=== PATIENT | female | born 2000 | race Caucasian/White ===

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

== ENCOUNTER 2019-05-30 20:49 | Emergency (ER) | payer OTHER ==
[2019-05-30 21:08] VITALS: BP 123/77
--- NOTE | 2019-05-30 21:20 | UC ---
Complaint Female HPI - HPI Summary HPI Summary: patient has had uti sx for 10 days (that was not treated)---last night she had developed a fever and today she is vomiting-- - History Of Current Complaint Chief Complaint: UCGU Stated Complaint: URINARY PROBLEM Time Seen by Provider: 05/30/19 21:04 Hx Obtained From: Patient Hx Last Menstrual Period: 05/20/19 ?: No Onset/Duration: Sudden Onset, Lasting Days - 10, Still Present Timing: Constant Severity Initially: Mild Severity Currently: Moderate Pain Intensity: 6 Pain Scale Used: 0-10 Numeric Character: Cramping Aggravating Factor(s): Urination Alleviating Factor(s): Other - tylenol Associated Signs And Symptoms: Positive: Fever, Nausea, Vomiting(# Of Episodes = ) - Allergies/Home Medications Allergies/Adverse Reactions: Allergies Allergy/AdvReac Type Severity Reaction Status Date / Time No Known Allergies Allergy Verified 05/30/19 21:08 Home Medications: Home Medications Fluoxetine (Nf) Cap [Fluoxetine HCl] 40 mg PO DAILY 05/30/19 [History Confirmed 05/30/19] PMH/Surg Hx/FS Hx/Imm Hx Previously Healthy: No Psychological History: Anxiety - Surgical History Surgical History: None - Family History Known Family History: Positive: None - Social History Occupation: Student Lives: Dormitory/Roommates Alcohol Use: None Substance Use Type: None Smoking Status (MU): Never Smoked Tobacco Review of Systems All Other Systems Reviewed And Are Negative: Yes Constitutional: Positive: Fever, Chills, Fatigue Skin: Positive: Rash - hives--- Eyes: Positive: Negative ENT: Positive: Negative Respiratory: Positive: Negative Cardiovascular: Positive: Negative Gastrointestinal: Positive: Abdominal Pain, Vomiting, Nausea Genitourinary: Positive: Dysuria, Frequency, Urgency Motor: Positive: Negative Neurovascular: Positive: Negative Musculoskeletal: Positive: Negative Neurological: Positive: Negative Psychological: Positive: Negative Is Patient Immunocompromised?: No Physical Exam Triage Information Reviewed: Yes Appearance: Ill-Appearing, Pain Distress Vital Signs: Initial Vital Signs Temp 102.1 F 05/30/19 21:02 Pulse 130 05/30/19 21:02 Resp 20 05/30/19 21:02 BP 123/77 05/30/19 21:02 Pulse Ox 97 05/30/19 21:02 Vital Signs Reviewed: Yes Eye Exam: Normal Eyes: Positive: Conjunctiva Clear ENT Exam: Normal ENT: Positive: Normal ENT inspection, Hearing grossly normal. Negative: Trismus , Muffled voice, Hoarse voice Dental Exam: Normal Neck exam: Normal Neck: Positive: Supple, Nontender Respiratory Exam: Normal Respiratory: Positive: Chest non-tender, Lungs clear, Normal breath sounds, No respiratory distress, No accessory muscle use Cardiovascular Exam: Normal Cardiovascular: Positive: RRR, Pulses Normal, Brisk Capillary Refill, Tachycardia Abdominal Exam: Other Abdomen Description: Positive: No Organomegaly, Soft, Other: - llq pain. Negative: Nontender, Hepatomegaly, McBurney's Point Tenderness Bowel Sounds: Positive: Present Musculoskeletal Exam: Normal Musculoskeletal: Positive: Strength Intact, ROM Intact, No Edema Neurological Exam: Normal Neurological: Positive: Alert, Muscle Tone Normal Psychological Exam: Other - fearful teary Skin Exam: Normal Complaint Female Dx - Course Course Of Treatment: npo to hospital for further care and assessment---- - Differential Dx/Diagnosis Provider Diagnosis: Fever complicating acute cystitis Discharge ED - Sign-Out/Discharge Documenting (check all that apply): Patient Departure All imaging exams completed and their final reports reviewed: No Studies - Discharge Plan Condition: Stable Disposition: HOME-RECOMMEND TO ED Patient Education Materials: Fever in Adults (ED) Referrals: [facility] [Outside] - If Needed - Billing Disposition and Condition Condition: STABLE Disposition: Home-Recommend to ED
[2019-05-30] MEDS ORDERED: Acetaminophen TAB* 325 MG PO ONE (21:36)
== END 2019-05-30 21:51 | disposition home health service (06) ==
LOC: UCEAST 20:49
DX: N39.0 Urinary tract infection, site not specified (principal); R51 Headache; R11.2 Nausea with vomiting, unspecified; R78.81 Bacteremia
CPT/HCPCS: 81003; 84702; 87077; 87086; 87186; 99212; A9270-GY; G0463

== ENCOUNTER 2019-05-30 22:06 | Emergency (ER) | payer OTHER ==
[2019-05-30] MEDS ORDERED: NS 0.9% 1000 ML** 1,000 ML IV ONE ×2 (22:14→22:45)
--- NOTE | 2019-05-30 22:17 | ED ---
GI/ HPI - HPI Summary HPI Summary: Patient sent from urgent care to ED to eval possible kidney infection. Patient has history of burning with urination 10 days, with new onset headache, fever, chills, left lower quadrant pain, nausea, vomiting starting yesterday. No active abdominal pain at this time. Also new onset rash today. Patient doubled her dose of fluoxetine 1 week ago. Denies new lotions, soaps, detergents, foods, beverages. Denies history of urticaria. Denies cough, sore throat, CP, change in BM, vaginal symptoms. Medical history is anxiety. Abdominal surgical history is none. Denies smoking, EtOH, recreational drug use. LMP second week of May. - History of Current Complaint Chief Complaint: EDUrogenitalProblems Time Seen by Provider: 05/30/19 22:12 Stated Complaint: CHECK WBC/POS KIDNEY INFECTION SENT FROM CC PER PT Hx Obtained From: Patient Hx Last Menstrual Period: 05/20/19 Onset/Duration: Started Days Ago Timing: Intermittent Current Severity: None Pain Intensity: 0 Location of Pain: LUQ, LLQ Pain Characteristics: Dull, Cramping Associated Signs and Symptoms: Positive: Nausea, Vomiting, Fever, Dysuria, Abdominal Pain, UTI Symptoms - Allergy/Home Medications Allergies/Adverse Reactions: Allergies Allergy/AdvReac Type Severity Reaction Status Date / Time No Known Allergies Allergy Verified 05/30/19 22:09 Home Medications: Home Medications Acetaminophen [Tylenol] 650 mg PO ONCE PRN 05/30/19 [History Confirmed 05/30/19] PMH/Surg Hx/FS Hx/Imm Hx Endocrine/Hematology History: Denies: Hx Anticoagulant Therapy Cardiovascular History: Denies: Hx Pacemaker/ICD History: Denies: Hx Dialysis Sensory History: Denies: Hx Eye Prosthesis Opthamlomology History: Denies: Hx Legally Blind EENT History: Denies: Hx Deafness Neurological History: Denies: Hx Dementia Infectious Disease History: No Infectious Disease History: Denies: Traveled Outside the [place] in Last 30 Days - Family History Known Family History: Positive: None - Social History Alcohol Use: None Substance Use Type: Reports: None Smoking Status (MU): Never Smoked Tobacco Review of Systems Positive: Fever, Chills Eyes: Negative ENT: Negative Cardiovascular: Negative Positive: Shortness Of Breath Positive: Abdominal Pain, Vomiting, Nausea Positive: burning Musculoskeletal: Negative Positive: Rash Positive: Headache Psychological: Normal All Other Systems Reviewed And Are Negative: Yes Physical Exam - Summary Physical Exam Summary: Tenderness left upper quadrant and left lower quadrant. Abdominal exam otherwise unremarkable. Triage Information Reviewed: Yes Vital Signs On Initial Exam: Initial Vitals Temp Pulse Resp BP Pulse Ox 103 F 130 16 119/77 97 05/30/19 22:07 05/30/19 22:07 05/30/19 22:07 05/30/19 22:07 05/30/19 22:07 Vital Signs Reviewed: Yes Appearance: Positive: Well-Appearing Skin: Positive: Warm Head/Face: Positive: Normal Head/Face Inspection Eyes: Positive: Normal Neck: Positive: Supple Respiratory/Lung Sounds: Positive: Clear to Auscultation Cardiovascular: Positive: Normal Abdomen Description: Positive: CVA Tenderness (L), Other:. Negative: CVA Tenderness (R) Musculoskeletal: Positive: Normal Neurological: Positive: Normal Psychiatric: Positive: Normal AVPU Assessment: Alert - [place] Coma Scale Best Eye Response: 4 - Spontaneous Best Motor Response: 6 - Obeys Commands Best Verbal Response: 5 - Oriented Coma Scale Total: 15 Procedures - Sedation Patient Received Moderate/Deep Sedation with Procedure: No Diagnostics - Vital Signs Vital Signs Temp Pulse Resp BP Pulse Ox 05/30/19 22:07 103 F 130 16 119/77 97 - Laboratory Result Diagrams: 05/30/19 22:26 05/30/19 22:26 Lab Statement: Any lab studies that have been ordered have been reviewed, and results considered in the medical decision making process. GIGU Course/Dx - Course Course Of Treatment: Patient sent from urgent care to ED to eval possible kidney infection. Patient has history of burning with urination 10 days, with new onset headache, fever, chills, left lower quadrant pain, nausea, vomiting starting yesterday. No active abdominal pain at this time. Also new onset rash today. Patient doubled her dose of fluoxetine 1 week ago. Denies new lotions, soaps, detergents, foods, beverages. Denies history of urticaria. Denies cough, sore throat, CP, change in BM, vaginal symptoms. Medical history is anxiety. Abdominal surgical history is none. Denies smoking, EtOH, recreational drug use. LMP second week of May. Temperature 103. Heart rate 130. Vital signs otherwise within normal limits. WBC 21. CRP 257. Lactic 0.6. Labs otherwise unremarkable. Fever and tachycardia controlled with antipyretics. Rocephin 2g administered IV here in the ED. Rx for Bactrim by mouth. 2 L normal saline here in ED. Discussed patient with attending Dr. Orosco who agreed patient could be discharged if sirs criteria controlled. Rash resolved with the Benadryl or the fever control. - Diagnoses Provider Diagnoses: Polyneuritis, Rash Discharge ED - Sign-Out/Discharge Documenting (check all that apply): Patient Departure - Discharge Plan Condition: Stable Disposition: HOME Prescriptions: Sulfamethox/Trimethoprim DS* [Bactrim DS 800/160 TAB*] 1 tab PO BID 14 Days #28 tab Patient Education Materials: Kidney Infection (ED) Referrals: Valorie Quintanilla NP [Primary Care Provider] - Additional Instructions: Drink plenty of fluids to maintain hydration. Alternate ibuprofen 600 mg with Tylenol 650 mg every 3 hours for fever as needed. Take antibiotics as directed twice a day for 14 days. Follow-up with primary care. Return to the ED for any new or worsening symptoms. - Billing Disposition and Condition Condition: STABLE Disposition: Home
[2019-05-30] MEDS ORDERED: Ondansetron INJ* 2 MG/ML VIAL IV ONE (22:24)
[2019-05-30 22:37] LABS: Hematocrit 36 % (35-47); Mean Corpuscular HGB Conc 34 g/dL (31-36); Mean Corpuscular Hemoglobin 29 pg (27-31); Mean Corpuscular Volume 86 fL (80-97); Mean Platelet Volume 8.2 fL (7.4-10.4); Platelet Count 239 10^3/uL (150-450); Red Blood Count 4.18 10^6 /uL (3.70-4.87); Red Cell Distribution Width 14 % (10-15); White Blood Count 21.2 10^3/uL (3.5-10.8)
[2019-05-30] MEDS ORDERED: cefTRIAXone(*) 2 GM in NS 0.9% 100 ML* 100 ML IVPB ONE (22:44)
[2019-05-30] MEDS ORDERED: Ibuprofen TAB* 600 MG PO ONE (22:45)
[2019-05-30 22:52] LABS: ALT 16 U/L (7-52); AST 16 U/L (13-39); Albumin 4.1 g/dL (3.2-5.2); Albumin/Globulin Ratio 1.3 (1-3); Alkaline Phosphatase 93 U/L (34-104); Anion Gap 10 mmol/L (2-11); Blood Urea Nitrogen 13 mg/dL (6-24); C Reactive Protein 257.02 mg/L (<8.01); CO2 Carbon Dioxide 21 mmol/L (22-32); Chloride 101 mmol/L (101-111); EGFR African American 110.2 (>60); EGFR Non-African American 91.1 (>60); Globulin 3.1 g/dL (2-4); Glucose 121 mg/dL (70-100); Potassium 3.5 mmol/L (3.5-5.0); Sodium 132 mmol/L (135-145); Total Protein 7.2 g/dL (6.4-8.9)
[2019-05-30] MEDS ORDERED: diPHENhydraMINE IV* 50 MG/ML 1 ml VIAL (BENADRYL) IV ONE (22:53)
[2019-05-30 22:54] LABS: ABS Lymphocytes 0.7 10^3/ul (1.0-4.8); ABS Monocytes 1.9 10^3/ul (0-0.8); ABS Neutrophils 18.6 10^3/ul (1.5-7.7); Eosinophil % 0.1 %; Lymphocyte % 3.1 %
[2019-05-30 22:59] LABS: HCG Pregnancy < 0.60 mIU/mL
[2019-05-30 23:10] LABS: Influenza A Molecular NEGATIVE (Negative); Influenza B Molecular NEGATIVE (Negative)
[2019-05-31 00:19] VITALS: BP 116/65
== END 2019-05-31 00:09 | disposition home or self-care (01) ==
LOC: ED 22:06
DX: G62.9 Polyneuropathy, unspecified (principal); R21 Rash and other nonspecific skin eruption; R30.0 Dysuria; R51 Headache; R50.9 Fever, unspecified; R10.32 Left lower quadrant pain; R11.2 Nausea with vomiting, unspecified
CPT/HCPCS: 36415; 80053; 83605; 83690; 84702; 85025; 86140; 87040; 87077; 87186; 87205; 96361; 96365; 96375; 99283; A9270-GY; J0696; J1200; J2405

== ENCOUNTER 2019-05-31 12:43 | Observation (INO) | payer OTHER ==
--- NOTE | 2019-05-31 13:10 | ED ---
Complex/Multi-Sys Presentation - HPI Summary HPI Summary: Patient is a 18 y/o F presenting to the ED for a chief complaint of a bacterial infection in the blood. Patient states that she received a call about having bacteria in her blood after being seen at [facility] on 05/30/19 for a possible kidney infection. She notes having a UTI 1 weeks ago that worsened from initial onset. Patient went to urgent care and was sent to [facility] where she was given antibiotics. She feels improved since her visit to [facility]. Patient reports LLQ abdominal pain, lightheadedness, dizziness, cough, and headache. Patient notes nausea 2 days ago and an episode of vomiting on 05/30/19. Patient denies vaginal bleeding, vaginal discharge, or rhinorrhea. Any significant PMHx, including previous kidney infections, is denied. Patient denies tobacco use. LNMP was on 05/07/19. - History Of Current Complaint Chief Complaint: EDGeneral Time Seen by Provider: 05/31/19 12:56 Hx Obtained From: Patient Onset/Duration: Sudden Onset, Still Present Timing: Constant Severity Currently: Moderate Severity Initially: Moderate Associated Signs And Symptoms: Positive: Headache, Nausea, Vomiting, Abdominal Pain - LLQ, Fever - In vitals, 99.8 F - Allergies/Home Medications Allergies/Adverse Reactions: Allergies Allergy/AdvReac Type Severity Reaction Status Date / Time No Known Allergies Allergy Verified 05/30/19 22:09 PMH/Surg Hx/FS Hx/Imm Hx Previously Healthy: Yes Endocrine/Hematology History: Denies: Hx Anticoagulant Therapy, Hx Diabetes Cardiovascular History: Denies: Hx Pacemaker/ICD History: Denies: Hx Dialysis Sensory History: Denies: Hx Eye Prosthesis, Hx Legally Blind, Hx Deafness Opthamlomology History: Denies: Hx Eye Prosthesis, Hx Legally Blind Neurological History: Denies: Hx Dementia - Surgical History Surgical History: None Surgery Procedure, Year, and Place: None Infectious Disease History: No Infectious Disease History: Denies: Traveled Outside the [place] in Last 30 Days - Family History Known Family History: Negative: Cardiac Disease, Hypertension, Diabetes - Social History Occupation: Student Lives: Alone Alcohol Use: None Hx Substance Use: No Substance Use Type: Reports: None Hx Tobacco Use: No Smoking Status (MU): Never Smoked Tobacco Review of Systems Positive: Fever - In vitals, 99.8 F Negative: Nasal Discharge Positive: Cough Positive: Abdominal Pain - LLQ, Vomiting, Nausea Positive: dysuria. Negative: discharge - Vaginal, other - Negative vaginal bleeding Neurological: Other - Positive lightheadedness and dizziness Positive: Headache All Other Systems Reviewed And Are Negative: Yes Physical Exam - Summary Physical Exam Summary: Constitutional: Well-developed, Well-nourished, Alert. (-) Distressed Skin: Warm, Dry HENT: Normocephalic; Atraumatic Eyes: Conjunctiva normal Neck: Musculoskeletal ROM normal neck. (-) JVD, (-) Stridor, (-) Tracheal deviation Cardio: Rhythm regular, rate normal, Heart sounds normal; Intact distal pulses; The pedal pulses are 2+ and symmetric. Radial pulses are 2+ and symmetric. (-) Murmur Pulmonary/Chest wall: Effort normal. (-) Respiratory distress, (-) Wheezes, (-) Rales Abd: Soft, (-) Distension, (-) Guarding, (-) Rebound. Mild suprapubic tenderness. Musculoskeletal: (-) Edema Lymph: (-) Cervical adenopathy Neuro: Alert, Oriented x3 Psych: Mood and affect Normal Triage Information Reviewed: Yes Vital Signs On Initial Exam: Initial Vitals Temp Pulse Resp BP Pulse Ox 99.8 F 105 19 133/81 98 05/31/19 12:44 05/31/19 12:44 05/31/19 12:44 05/31/19 12:44 05/31/19 12:44 Vital Signs Reviewed: Yes Procedures - Sedation Patient Received Moderate/Deep Sedation with Procedure: No Diagnostics - Vital Signs Vital Signs Temp Pulse Resp BP Pulse Ox 05/31/19 12:44 99.8 F 105 19 133/81 98 - Laboratory Result Diagrams: 05/31/19 13:19 05/31/19 13:19 Lab Statement: Any lab studies that have been ordered have been reviewed, and results considered in the medical decision making process. - Ultrasound Renal US Ultrasound Interpretation Completed By: Radiologist Summary of Ultrasound Findings: Renal US IMPRESSION: NO HYDRONEPHROSIS OR NEPHROLITHIASIS. Reviewed by Dr. Davison. Complex Multi-Symp Course/Dx Course Of Treatment: Patient is a 18 y/o F presenting to the ED for a chief complaint of a bacterial infection in the blood. Patient states that she received a call about having bacteria in her blood after being seen at [facility] on 05/30/19 for a possible kidney infection. She notes having a UTI 1 weeks ago that worsened from initial onset. Patient went to urgent care and was sent to [facility] where she was given antibiotics. She feels improved since her visit to [facility]. Patient reports LLQ abdominal pain, lightheadedness, dizziness, cough, and headache. Patient notes nausea 2 days ago and an episode of vomiting on . Patient denies vaginal bleeding, vaginal discharge, or rhinorrhea. Any significant PMHx, including previous kidney infections, is denied. Patient denies tobacco use. LNMP was on 05/07/19. On exam, soft, non-distended abdomen , mild suprapubic tenderness. In the ED course, patient was given ceftriaxone 1 gm IVPB and IV fluids. Laboratory abnormal findings: WBC 13.9, Hgb 11.2, Hct 33, absolute neuts 12.1, absolute monos 0.9, glucose 137, calcium 8.4, CRP 288.66, urine ketones trace, urine blood 1+, urine leukocyte esterase 3+, urine WBC 3+, urine RBC 2+, urine squamous epith cells present, urine bacteria 1+. Renal US IMPRESSION: NO HYDRONEPHROSIS OR NEPHROLITHIASIS. At 16:12, Dr. Negrita Lee reviewed the patients case and agrees to admit the patient to [facility] with a diagnosis of UTI and bacteremia. Patient will be admitted to [facility] with a diagnosis of UTI and bacteremia. - Diagnoses Provider Diagnoses: UTI (urinary tract infection), Bacteremia - Physician Notifications Discussed Care Of Patient With: Negrita Lee - At 16:12, Dr. Negrita Lee reviewed the patients case and agrees to admit the patient to [facility] with a diagnosis of UTI and bacteremia. Time Discussed With Above Provider: 16:12 Instructed by Provider To: Admit As Inpatient Discharge ED - Sign-Out/Discharge Documenting (check all that apply): Patient Departure - Admit - Discharge Plan Condition: Stable Disposition: ADMITTED TO [facility] - Billing Disposition and Condition Condition: STABLE Disposition: Admitted to [facility] - Attestation Statements Document Initiated by Scribe: Yes Documenting Scribe: Sridevi Wolfe Provider For Whom Scribe is Documenting (Include Credential): Vasile Davison, DO Scribe Attestation: I, Sridevi Wolfe, scribed for Vasile Davison DO on 05/31/19 at 2033. Scribe Documentation Reviewed: Yes Provider Attestation: The documentation as recorded by the scribe, Sridevi Wolfe accurately reflects the service I personally performed and the decisions made by , Vasile Davison DO Status of Scribe Document: Viewed
[2019-05-31] MEDS ORDERED: NS 0.9% 1000 ML** 1,000 ML IV ONE ×2 (13:13→14:39)
[2019-05-31] MEDS ORDERED: cefTRIAXone(*) 1 GM in NS 0.9% 50 ML* 50 ML IVPB ONE (13:18)
[2019-05-31 13:28] LABS: ABS Monocytes 0.9 10^3/ul (0-0.8); ABS Neutrophils 12.1 10^3/ul (1.5-7.7); Eosinophil % 0.1 %; Hematocrit 33 % (35-47); Hemoglobin 11.2 g/dL (12.0-16.0); Lymphocyte % 6.9 %; Mean Corpuscular HGB Conc 34 g/dL (31-36); Mean Corpuscular Hemoglobin 29 pg (27-31); Mean Corpuscular Volume 86 fL (80-97); Mean Platelet Volume 7.9 fL (7.4-10.4); Platelet Count 211 10^3/uL (150-450); Red Blood Count 3.85 10^6 /uL (3.70-4.87); Red Cell Distribution Width 14 % (10-15); White Blood Count 13.9 10^3/uL (3.5-10.8)
[2019-05-31 13:44] LABS: BUN/Creatinine Ratio 11.8 (8-20); C Reactive Protein 288.66 mg/L (<8.01); Calcium 8.4 mg/dL (8.6-10.3); EGFR African American 134.9 (>60); EGFR Non-African American 111.5 (>60); Potassium 3.6 mmol/L (3.5-5.0)
--- NOTE | 2019-05-31 14:49 | ED ---
Imaging and Labs Follow Up Follow Up Type: Labs/Cultures, Other Labs/Culture Result: pt called to return to the ED following + gram negative bacilli cultures Patient Communication/Plan: pt agrees to return Patient Communication/Plan: returned to the ED Other Patient Communication/Plan: ...
[2019-05-31 15:57] LABS: Urine Appearance Cloudy; Urine Bilirubin Negative (Negative); Urine Blood 1+ (Negative); Urine Color Yellow; Urine Glucose Negative (Negative); Urine Ketones Trace (Negative); Urine Nitrite Negative (Negative); Urine Protein Negative (Negative); Urine Urobilinogen Negative (Negative)
[2019-05-31 16:09] LABS: Urine Bacteria 1+ (Absent); Urine Red Blood Cell 2+(6-10/hpf) (Absent); Urine Squamous Epithelial Cell Present (Absent); Urine White Blood Cell 3+(>20/hpf) (Absent)
[2019-05-31] MEDS: Acetaminophen TAB* 325 MG PO PRN ×2 (17:16→23:30)
--- NOTE | 2019-05-31 19:35 | HP ---
CC: [facility] * HISTORY AND PHYSICAL: DATE OF ADMISSION: 05/31/19 PRIMARY CARE PROVIDER: [facility] CHIEF COMPLAINT: Directed by the ED due to positive blood cultures yesterday. 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 The patient also at that point was having fevers. She was evaluated by the ED provider, given a dose of ceftriaxone and prescribed Bactrim to go home with. The patient's temperature yesterday was 103 degrees and her leukocyte count was 21,000. After she went home from the ED yesterday, she felt better and she had been afebrile until the ED provider called her today that her blood cultures were positive for gram- negative bacilli. At that point, her urinary symptoms were resolving. She came into the ED for evaluation. Her WBCs at this point are 13,000. She is afebrile. She is still mildly tachycardiac. She is going to be placed on overnight observation as requested by the ED provider for UTI and sepsis. PAST MEDICAL HISTORY: None. PAST SURGICAL HISTORY: None. MEDICATIONS: At admission included: 1. Bactrim 1 tablet b.i.d. started yesterday. 2. Fluoxetine 40 mg daily. 3. Acetaminophen on p.r.n. basis. FAMILY HISTORY: Both the patient's parents have diabetes and father with history of dyslipidemia. SOCIAL HISTORY: The patient denies any tobacco, alcohol or drug use. She is a [employer] student. Her surrogate is her father Khris Monroy with a phone number of [phone]. REVIEW OF SYSTEMS: Please see history of present illness. All the remaining 12 systems reviewed with the patient and were otherwise negative. PHYSICAL EXAMINATION GENERAL: The patient is a very pleasant 18-year-old female who is in no acute distress. The patient alert and oriented x3. VITAL SIGNS: Blood pressure of 104/88, heart rate of 92 and regular, respiratory rate 19, oxygen saturation 97% on room air, temperature 99.8. HEENT: Head: Atraumatic, normocephalic. Eyes: Pupils are equal, reactive to light and accommodation. Oropharynx clear. Mucosa moist. NECK: Supple. No JVD. No bruits bilaterally. RESPIRATORY: Clear to auscultation bilaterally. CARDIOVASCULAR: Regular rate and rhythm. No murmur. ABDOMEN: Soft, nontender. Bowel sounds present in all 4 quadrants. BACK: On evaluation of the back, no CVA tenderness bilaterally noted. EXTREMITIES: There is no edema. Pulses are +2 bilaterally. There is no clubbing, no cyanosis. NEUROLOGIC: Speech clear. Cranial nerves II through XII grossly intact. Motor strength is 5/5 bilaterally. DIAGNOSTIC STUDIES/LABORATORY DATA: White blood cell count 13.9, hemoglobin 11.2, hematocrit 33, platelets 211. C-reactive protein was 2.88. Sodium 135, potassium 3.6, chloride 105, carbon dioxide 24, BUN 8, creatinine 0.6. Urinalysis positive for yellow and cloudy urine with trace blood, +3 esterase, + 3 wbc's, +2 rbc's. Renal ultrasound obtained today showed no hydronephrosis or nephrolithiasis and normal size of kidneys. Portable chest x-ray reviewed by myself. The official radiologist report shows mild vascular congestion. ASSESSMENT AND PLAN: 1. Sepsis with gram-negative bacteremia likely due to urinary tract infection. Unfortunately, it appears that the patient did not have cultures obtained from the urinalysis obtained yesterday. Those are going to be obtained today. The patient is going to be continued on ceftriaxone that was started yesterday. At this point, the lactic acid is still pending at the time of dictation, but she had been afebrile and she feels much better with decreased leukocytosis. She is going to be placed on overnight observation. Of note, she received a total of 4 L of intravenous fluid within the past 24 hours. She has mild vascular congestion on the chest x-ray and no further fluids are going to be administered. 2. For DVT prophylaxis, the patient is ambulatory and low risk. 3. The patient's code status is full. Her surrogate is her father. TIME SPENT: Approximately 65 minutes was spent on admission of this patient, more than half of that time was spent [id number] with the patient during the interview and physical exam. [id number] #: [id number] MTDD
[2019-06-01 08:15] LABS: ABS Lymphocytes 2.2 10^3/ul (1.0-4.8); ABS Monocytes 1.4 10^3/ul (0-0.8); ABS Neutrophils 11.7 10^3/ul (1.5-7.7); Eosinophil % 0.3 %; Hematocrit 33 % (35-47); Hemoglobin 11.3 g/dL (12.0-16.0); Lymphocyte % 14.4 %; Mean Corpuscular HGB Conc 35 g/dL (31-36); Mean Corpuscular Hemoglobin 30 pg (27-31); Mean Corpuscular Volume 85 fL (80-97); Mean Platelet Volume 8.4 fL (7.4-10.4); Platelet Count 234 10^3/uL (150-450); Red Blood Count 3.82 10^6 /uL (3.70-4.87); Red Cell Distribution Width 15 % (10-15); White Blood Count 15.3 10^3/uL (3.5-10.8)
[2019-06-01] MEDS ORDERED: FLUoxetine CAP* 20 MG PO SCH (09:00)
[2019-06-01] MEDS ORDERED: Azithromycin 500 mg/250 ml NS 500 MG/250 ML BAG IVPB SCH (10:00)
[2019-06-01] MEDS ORDERED: guaiFENesin ER TAB 600 MG PO SCH (10:00)
[2019-06-01] MEDS ORDERED: Ondansetron INJ* 2 MG/ML VIAL IV ONE (12:08)
[2019-06-01] MEDS ORDERED: cefTRIAXone(*) 1 GM in NS 0.9% 50 ML* 50 ML IVPB SCH (13:00)
[2019-06-01 13:14] VITALS: BP 101/54
--- NOTE | 2019-06-01 18:34 | DS ---
CC: Primary Care Provider; [facility] * DISCHARGE SUMMARY: DATE OF ADMISSION: 05/31/19 DATE OF DISCHARGE: 06/01/19 PRIMARY CARE PROVIDER: Provider from [facility]. DISPOSITION AT DISCHARGE: Home. CONDITION AT DISCHARGE: Stable. DISCHARGE DIAGNOSES: 1. Sepsis due to urinary tract infection with Escherichia coli bacteremia. 2. Possible right-sided pneumonia. MEDICATIONS AT DISCHARGE: Include: 1. Cefdinir 300 mg p.o. b.i.d. for a total of 10 days. 2. Azithromycin 250 mg p.o. daily for a total of 4 days. 3. Fluoxetine as previously taken at 40 mg daily. LABORATORY DATA AND STUDIES PERFORMED DURING THE HOSPITAL STAY: Included on , white blood cell count of 15.3, hemoglobin of 11.3, hematocrit of 33, and platelets of 234. Microbiology studies with blood cultures obtained on 05/30/19, one of 3 bottles was reported positive for E. coli. The culture sensitivities are still pending at the time of dictation and as per my discussion with microbiology lab, will be reported on 06/02/19. HOSPITALIZATION COURSE: Sue Monroy is a 18-year-old transgender female to male who likes to go by the name Yaya, who had symptoms of urinary tract infection on 05/30/19. He presented to the ED with leukocytosis and fever of 103 degrees. At this point, he was treated with ceftriaxone and sent home on Bactrim. Later on, his blood cultures were reported to be positive for gram- negative bacilli and he was directed back to the ED to be reevaluated. When in the ED evaluated, he was noted to have pretty unremarkable ultrasound of the kidneys, but continued to be febrile. Due to that, he was placed on overnight observation. Ceftriaxone was continued. Blood cultures were obtained and urine cultures were obtained. Somehow our lab did not process the original urine cultures from 05/30/19, but we do have blood cultures only. Either way, repeat blood cultures and urine cultures were obtained on 05/31/19. The patient was febrile in the evening on 05/31/19, but did very well overnight otherwise. He did have an episode of shortness of breath and portable chest x- ray was obtained, which showed possibility of right-sided small infiltrate. Please also note that the patient received a total of 4 L of intravenous fluids 24 hours prior to that. Nevertheless, due to the patient still being febrile on 05/31/19, on 06/01/19 the patient was started on azithromycin in addition to ceftriaxone. Flu testing was negative. On the day of discharge on 06/01/19, the patient's dysuria resolved entirely. He no longer complains of shortness of breath and he is ready to go home. The recommendation is for Yaya to follow up with his primary care provider at [facility] [place] within the next 1 to 3 days especially that the blood cultures will be reported tomorrow with sensitivities. At this point, he defervesced very well and I suspect that third-generation cephalosporin is a good coverage for this patient. At this point, we will continue with cefdinir at 300 mg twice a day for a total of 10 days due to E. coli bacteremia and UTI. We will also place the patient on azithromycin to continue and complete a 5-day course with azithromycin 250 mg daily for a total of 4 days. PHYSICAL EXAMINATION: At the time of discharge, blood pressure 105/69, heart rate of 98 and regular, respiratory rate 16, oxygen saturation 98% on room air, temperature is 98.1. General: The patient is a very pleasant 18-year-old female to male transgender who is in no acute distress. The patient is alert and oriented x3. HEENT: Head: Atraumatic, normocephalic. Eyes: Pupils are equal, reactive to light and accommodation. Oropharynx is clear. Mucosa moist. Neck: Supple. No JVD. No bruits bilaterally. Cardiovascular: Regular rate and rhythm. No murmur. Respiratory: Clear to auscultation bilaterally. Abdomen: Soft, nontender. Bowel sounds are present in all 4 quadrants. There is no CVA tenderness on palpation of the patient's back. Extremities: There is no edema. Pulses are 2+ bilaterally. No clubbing or cyanosis. On neuro evaluation, speech is clear. Cranial nerves II through XII grossly intact. Motor strength is 5/5 bilaterally. Please note that this is a short summary of the patient's hospital stay. Please refer to further medical records for details. [id number] #: [id number] [facility]
== END 2019-06-01 14:00 | disposition home or self-care (01) ==
LOC: ED 12:43 → MED 16:12
PROVIDERS: ADMIT Internal Medicine; ATTEND Internal Medicine
DX: A41.9 Sepsis, unspecified organism (principal); N39.0 Urinary tract infection, site not specified; B96.20 Unspecified Escherichia coli [E. coli] as the cause of diseases classified elsewhere; Z79.899 Other long term (current) drug therapy; R11.2 Nausea with vomiting, unspecified; R51 Headache
CPT/HCPCS: 36415; 71045; 76775; 80048; 81003; 81015; 83605; 85025; 86140; 96365; 96366; 96367; 96375; 99284; A9270-GY; G0378; J0456; J0696; J2405